=== PATIENT | female | born 1960 | race African-American/Black ===

== ENCOUNTER 2016-10-12 04:56 | Emergency (ER) | payer OTHER ==
--- NOTE | ~2016-10-12 | CR230 ---
[facility] A Service of [facility] RADIOLOGY TEXT RESULTS PATIENT: YINA ROME LOCATION: [facility] : 64 UNIT #: [id number] AGE: [address]: Paras Mishra MD SEX: F ORDER DR: [id number] [place], [place] [address] [id number] MR#: [id number] Acc #: [id number] NAME: YINA ROME. : 1960 SEX: F STUDY DATE/TIME: 10/12/2016 5:26 UNIT: [facility] ROOM: STUDY DESCRIPTION: CR Shoulder Min 2 View Rt Attending Physician: Narciso Mishra M.D. Ordering Physician: Rachid Villasenor M.D. Primary Care Physician: Primary Care Physician No MEDICAL IMAGING REPORT This report is preliminary unless electronic signature is present EXAM Right shoulder INDICATION Right shoulder pain with difficulty moving the shoulder for a few days. Previous shoulder surgery. FINDINGS AP and lateral views of the right shoulder were obtained. 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 There are 4 small radiodense objects medial to the proximal humerus. They measure about 5 mm in maximum dimension. I believe they are too far inferior to represent loose bodies. IMPRESSION 1. There is no fracture or dislocation. 2. There are 4 radiodense objects medial to the proximal humerus measuring between 4 and 6 mm in diameter. I think that they are too far inferior to represent loose bodies within the joint and it is unclear if they represent calcifications or small fragments of material that was used for joint replacement. Dictated by... Jose Baker M.D. THIS IS AN ELECTRONICALLY VERIFIED REPORT Jose Baker M.D. at 10/12/2016 1:21 PM FERNANDEZ/karlo [facility] A Service of [facility] RADIOLOGY TEXT RESULTS PATIENT: YINA ROME LOCATION: [facility] : 64 UNIT #: [id number] AGE: [address]: Paras Mishra MD SEX: F ORDER DR: TD: 10/12/2016 06:44 JOB #: [id number] MEDICAL IMAGING REPORT Page 1 of 1 COPY
--- NOTE | ~2016-10-12 | CR94 ---
[facility] A Service of [facility] RADIOLOGY TEXT RESULTS PATIENT: YINA ROME LOCATION: [facility] : 64 UNIT #: [id number] AGE: [address]: Paras Mishra MD SEX: F ORDER DR: [id number] [facility]. [place], [place] [address] [id number] MR#: [id number] Acc #: [id number] NAME: YINA ROME : 1960 SEX: F STUDY DATE/TIME: 10/12/2016 5:28 UNIT: [facility] ROOM: STUDY DESCRIPTION: CR Elbow Min 3 Views Rt Attending Physician: Narciso Mishra M.D. Ordering Physician: Ed Suresh Bojorquez M.D. Primary Care Physician: No Primary Care Physician MEDICAL IMAGING REPORT This report is preliminary unless electronic signature is present EXAM Right elbow 10/12. INDICATION Right elbow pain for a few days. COMPARISON None. FINDINGS Four views of the right elbow were obtained. There is dorsal soft tissue swelling over the elbow. There is no fracture or effusion. IMPRESSION Dorsal soft tissue swelling, otherwise, normal. Dictated by... Jose Baker M.D. THIS IS AN ELECTRONICALLY VERIFIED REPORT Jose Baker M.D. at 10/12/2016 1:21 PM FEL/bd TD: 10/12/2016 06:45 JOB #: [id number] MEDICAL IMAGING REPORT Page 1 of 1 COPY
[~2016-10-12 04:56] MED LIST: IBUPROFEN800 MG PO
[2016-10-12] MEDS ORDERED: SYNTHROID PO (04:59)
[2016-10-12] MEDS ORDERED: MULTI VITAMIN1 EACH PO (05:00)
[2016-10-12] MEDS ORDERED: [UNRECOGNIZED DRUG - OTHER] PO (05:00)
[2016-10-12] MEDS ORDERED: DEPAKOTE PO (05:00)
[2016-10-12] MEDS ORDERED: COLCRYS0.6 M2 PO (05:01)
[2016-10-12] MEDS ORDERED: PEPCID AC20 M2 PO (05:01)
[2016-10-12] MEDS ORDERED: KEPPRA1000 MG PO (05:01)
[2016-10-12] MEDS ORDERED: IPRAT-ALBUT 0.5-3 ML NEB (05:02)
[2016-10-12] MEDS ORDERED: TYLENOL325 M1 PO (05:02)
== END 2016-10-12 05:54 | disposition home or self-care (01) ==
LOC: CED 04:56
DX: M25.511 Pain in right shoulder (principal); M25.521 Pain in right elbow; E11.9 Type 2 diabetes mellitus without complications; I10 Essential (primary) hypertension; G40.909 Epilepsy, unspecified, not intractable, without status epilepticus; F17.210 Nicotine dependence, cigarettes, uncomplicated; Z79.899 Other long term (current) drug therapy
CPT/HCPCS: 73030; 73080; 99283